=== PATIENT | male | born 1950 | race Caucasian/White ===

== ENCOUNTER 2017-04-08 18:00 | Emergency (ER) | payer OTHER, MEDICARE ==
[2017-04-08 18:00] VITALS: BP 131/76; PULSE 96; RESP 22; TEMP 97.9; O2SAT 91
--- NOTE | 2017-04-08 20:37 | PD ---
HPI Chief Complaint: Psychiatric Symptoms Time Seen by Provider: 20:37 Travel History International Travel<30 days: No Contact w/Intl Traveler<30days: No Traveled to known affect area: No History of Present Illness HPI 66-year-old male with history of COPD, presents to the emergency department under a Robles act for psychiatric evaluation. Patient states that he is a [facility] the [facility] and [facility] he feels as though his care has not been adequate. He thinks that his breathing has gotten worse and he has not been getting injections into his eyes which are for helping his site not deteriorate. He is also upset because his vitamin B injections have not been filled. He states that he was explaining this to his physician and telling him that if he is "going to live he wants to live life, but if he is going to and not be able to live his life, he would rather just get it over with now." Patient states he has no plan of suicide. He does a set he wants to live for his grandchildren but has told his grandchildren to not come to his home for the last few months because he does not have the energy and this has caused him to be more upset. Agent denies any illicit drug use. He is oxygen dependent at home and chronically short of breath. He has no other symptoms to report at this time. [facility] Past Medical History Cancer: Yes (COLON) COPD: Yes Diminished Hearing: No Medical other: Yes (R SIDE ILEOSTOMY ) Past Surgical History Appendectomy: Yes Cholecystectomy: Yes Other Surgery: Yes (PARTIAL LIVER REMOVAL, REMOVED ALL BUT 3-4 FEET OF INTESTINE ) Social History Alcohol Use: No Tobacco Use: No Substance Use: No Allergies-Medications (Allergen,Severity, Reaction): Coded Allergies: Contrast Media (Verified Allergy, Intermediate, 04/08/17) Review of Systems Except as stated in HPI: all other systems reviewed are Neg Physical Exam Narrative GENERAL: Well-nourished male patient, in no acute distress. SKIN: Focused skin assessment warm/dry. HEAD: Atraumatic. Normocephalic. EYES: Pupils equal and round. No scleral icterus. No injection or drainage. ENT: No nasal bleeding or discharge. Mucous membranes pink and moist. NECK: Trachea midline. No JVD. CARDIOVASCULAR: Regular rate and rhythm. No murmur appreciated. RESPIRATORY: No accessory muscle use. Menest to auscultation. Breath sounds equal bilaterally. GASTROINTESTINAL: Abdomen soft, non-tender, nondistended. Hepatic and splenic margins not palpable. MUSCULOSKELETAL: No obvious deformities. No clubbing. No cyanosis. No edema. NEUROLOGICAL: Awake and alert. No obvious cranial nerve deficits. Motor grossly within normal limits. Normal speech. PSYCHIATRIC: Appropriate mood and affect; insight and judgment normal. Data Data Last Documented VS Vital Signs Date Time Temp Pulse Resp B/P Pulse Ox O2 Delivery O2 Flow Rate FiO2 04/09/17 02:38 97 90 Nasal Cannula 3 04/09/17 00:40 18 130/70 04/08/17 18:00 97.9 Orders Complete Blood Count With Diff (04/08/17 20:37) Basic Metabolic Panel (Bmp) (04/08/17 20:37) Urinalysis - C+S If Indicated (04/08/17 20:37) Psych Screen (04/08/17 20:37) Drug Screen, Random Urine (04/08/17 20:37) Alcohol (Ethanol) (04/08/17 20:37) Albuterol-Ipratropium Neb (Duoneb Neb) (04/08/17 20:45) Oxygen Administration (04/08/17 20:41) Chest, Single Ap (04/08/17 ) Diet Regular Basic (04/09/17 Breakfast) Labs Laboratory Tests Test 04/08/17 20:50 White Blood Count 15.2 TH/MM3 Red Blood Count 4.96 MIL/MM3 Hemoglobin 14.6 GM/DL Hematocrit 42.6 % Mean Corpuscular Volume 86.0 FL Mean Corpuscular Hemoglobin 29.5 PG Mean Corpuscular Hemoglobin 34.3 % Concent Red Cell Distribution Width 14.7 % Platelet Count 298 TH/MM3 Mean Platelet Volume 8.4 FL Neutrophils (%) (Auto) 66.7 % Lymphocytes (%) (Auto) 21.1 % Monocytes (%) (Auto) 8.6 % Eosinophils (%) (Auto) 2.8 % Basophils (%) (Auto) 0.8 % Neutrophils # (Auto) 10.1 TH/MM3 Lymphocytes # (Auto) 3.2 TH/MM3 Monocytes # (Auto) 1.3 TH/MM3 Eosinophils # (Auto) 0.4 TH/MM3 Basophils # (Auto) 0.1 TH/MM3 CBC Comment DIFF FINAL Differential Comment Sodium Level 136 MEQ/L Potassium Level 4.3 MEQ/L Chloride Level 101 MEQ/L Carbon Dioxide Level 29.6 MEQ/L Anion Gap 5 MEQ/L Blood Urea Nitrogen 16 MG/DL Creatinine 1.22 MG/DL Estimat Glomerular Filtration 59 ML/MIN Rate Random Glucose 104 MG/DL Calcium Level 8.5 MG/DL Ethyl Alcohol Level 6 MG/DL MDM Medical Decision Making Medical Screen Exam Complete: Yes Emergency Medical Condition: Yes Medical Record Reviewed: Yes Differential Diagnosis Adjustment reaction disorder versus mood disorder versus personality disorder Narrative Course 66-year-old male presents to emergency department and a Robles act for psychiatric evaluation. Patient appears without distress. He is placed on nasal cannula oxygen here as he is at home. He is given a breathing treatment. Lab work is ordered and completed without acute concern. Chest x-rays without acute concern. Patient is medically cleared to undergo psychiatric screening for further evaluation and disposition. Mental health screening discussed with the patient. Psychiatric screen ordered. Diagnosis Primary Impression: Adjustment reaction Qualified Code: F43.21 - Adjustment disorder with depressed mood Additional Impression: COPD (chronic obstructive pulmonary disease) Qualified Code: J43.9 - Pulmonary emphysema, unspecified emphysema type Condition: Stable Lucy Tanner Apr 08, 2017 20:37
[2017-04-08 21:37] LABS: AUTOMATED NEUTROPHIL # 10.1 TH/MM3 (1.8-7.7); BASOPHIL # 0.1 TH/MM3 (0-0.2); BASOPHIL % 0.8 % (0.0-2.0); EOSINOPHIL # 0.4 TH/MM3 (0-0.4); EOSINOPHIL % 2.8 % (0.0-4.0); HEMATOCRIT 42.6 % (39.0-51.0); HEMO FLAGS DIFF FINAL; LYMPH % 21.1 % (9.0-44.0); LYMPHOCYTE # 3.2 TH/MM3 (1.0-4.8); MEAN CORPUSCULAR HEMOGLOBIN 29.5 PG (27.0-34.0); MEAN CORPUSCULAR HGB CONC 34.3 % (32.0-36.0); MONO % 8.6 % (0.0-8.0); NEUT % 66.7 % (16.0-70.0); PLATELET COUNT 298 TH/MM3 (150-450); RED BLOOD COUNT 4.96 MIL/MM3 (4.50-5.90); RED CELL DISTRIBUTION WIDTH 14.7 % (11.6-17.2); WHITE BLOOD COUNT 15.2 TH/MM3 (4.0-11.0)
[2017-04-08] MEDS: RESP: ALBUTEROL 2.5 MG/IPRATROPIUM 0.5 MG NEB (PRN) NEB (21:48)
[2017-04-08 21:49] LABS: BICARBONATE 29.6 MEQ/L (21.0-32.0); POTASSIUM 4.3 MEQ/L (3.5-5.1)
[2017-04-08 22:08] VITALS: BP 137/81; PULSE 89; RESP 26; O2SAT 97
--- NOTE | 2017-04-08 22:37 | RADRPT ---
EXAM DATE/TIME: 04/08/2017 22:03 [place] COMPARISON: No previous studies available for comparison. INDICATIONS : Coughing and wheezing. MEDICAL HISTORY : Chronic obstructive pulmonary disease. SURGICAL HISTORY : None. ENCOUNTER: Initial ACUITY: 1 day PAIN SCORE: 0/10 LOCATION: Bilateral chest FINDINGS: A single view of the chest demonstrates the lungs to be symmetrically aerated without evidence of mas s, infiltrate or effusion. The cardiomediastinal contours are unremarkable. Osseous structures are intact. CONCLUSION: No acute disease. Papo Gore MD on April 08, 2017 at 22:35 Board Certified Radiologist. This report was verified electronically.
[2017-04-09 00:39] VITALS: BP 130/68; PULSE 88; RESP 18; O2SAT 99
[2017-04-09 00:40] VITALS: BP 130/70; PULSE 80; RESP 18; O2SAT 99
[2017-04-09 02:38] VITALS: PULSE 97; O2SAT 90
[2017-04-09] MEDS: RESP: ALBUTEROL 2.5 MG/IPRATROPIUM 0.5 MG NEB (PRN) NEB (02:38)
[2017-04-09 07:40] VITALS: BP 109/78; PULSE 76; RESP 20; TEMP 97.8; O2SAT 99
--- NOTE | 2017-04-09 09:37 | MB ---
cc: VENU REID MD DATE OF CONSULTATION: 04/09/2017 REQUESTING CONSULTATION: Emergency department. REASON FOR CONSULTATION: Robles Act. HISTORY OF PRESENT ILLNESS Mr. Dickey is a 66-year-old male with no known past psychiatric history who presents under Robles ACT from Bettina Oneill clinical psychologist, who is alleging that the patient made comments to the [facility] medical staff on the and the regarding a plan to come with a gun and shoot staff or shoot himself if he did not get a B12 shot. Reviewing the electronic medical record, I see no prior psychiatric contact within our system and this is apparently the patient's first visit to [place]. The patient seen and examined. Chart reviewed. Sitter at the bedside. The patient has been calm and cooperative overnight. No evidence of any suicidality or homicidality. On my examination today, the patient is calm and cooperative. He adamantly denies the allegations in the Robles ACT and denies suicidal or homicidal ideation, intent or plan on direct questioning. He contracts for safety. He explains that [facility] as he feels that he is deficient. He relates that he has history of extensive bowel resection related to his history of inflammatory bowel disease and so does not absorb B12 well. He has been feeling particularly weak lately and is convinced that he is in need of B12. He says that he has written B12 shots regularly in the past. He says that the physician at the [facility] blew him off. He returned on the and reiterated his request. He says that his statements were taken out of context. He says when he really said was "if I am dying, I might as well go home and end it, but I want to live." He denies suicidal or homicidal ideation as I said. I can elicit no depressive symptoms. I can elicit no hypomanic or manic symptoms. He denies any audiovisual hallucinations and I can elicit no delusional beliefs. The remainder of the psychiatric ROS is negative. The patient is requesting discharge from the emergency room this morning. With the patient's permission, I have obtained collateral from his granddaughter with whom he lives, Fatemeh Willis at [phone]. She agrees that the [facility] likely took the patient's statements out of context. She has absolutely no concerns about the patient being a risk of harm to himself or others. She has never known the patient to be suicidal or violent. PAST PSYCHIATRIC HISTORY The patient denies a history of psychiatric diagnosis. He denies a history of inpatient or outpatient psychiatric treatment. He denies a history of suicide attempts. He denies a history of violent behavior. FAMILY HISTORY The patient denies a family history of serious mental illness. He does note that his brother struggled with alcohol use. CHEMICAL DEPENDENCY HISTORY: The patient denies any abuse of drugs or alcohol himself. SOCIAL HISTORY The patient reports that he lives with his granddaughter. He was in 2001 having lost his to lung cancer. He has one natural born child and adopted four others. He served in the [employer] during the [employer] and is 100% service-connected with a honorable discharge. No reported PTSD symptoms. Denies any legal history. Denies any access to guns or firearms. PAST MEDICAL HISTORY Includes a history of colon cancer and Crohn disease. REVIEW OF SYSTEMS No reported headache, vision or hearing changes, chest pain, shortness of breath, bowel or bladder issues. No other physical complaints. PHYSICAL EXAMINATION VITAL SIGNS: Temperature 97.8, pulse 76, respirations 20, blood pressure 109/78, pulse oximetry 98% on room air 3 liters by nasal cannula. Physical examination completed by the ED provider. On my examination today, the patient appears to be in no acute physical distress. He is somewhat dyspneic but is on supplemental O2. No motor abnormalities noted. LABORATORY Reviewed: CBC is significant for mild leukocytosis at 15.2. BMP reveals GFR 59. Alcohol level very slightly elevated at six. MENTAL STATUS EXAM The patient is in hospital gown. He is well-groomed. He is awake, alert and oriented x3. No evidence of delirium. No motor abnormalities noted. Speech is within normal limits for rate, tone and volume. Language and fund of knowledge average. Focus concentration intact. Memory ingrowth is grossly intact on clinical exam. Mood is fair all things considered. Affect is euthymic, full and reactive. Thought process linear. No loosening of associations. No delusional material elicited. Denies audiovisual hallucinations. Denies suicidal or homicidal ideation, intent or plan. Insight and judgment are fair. ASSESSMENT/PLAN Adjustment disorder, unspecified, F 43.20 This is a 66-year-old male was with no real past psychiatric history who presents under Robles ACT. The patient was apparently simply [facility] and perhaps got a little heated when they refused. In any event he denies any suicidal or homicidal ideation, intent or plan on direct questioning. Contracts for safety. I can detect no unstable mental illness as defined under the Robles ACT. His granddaughter with whom he lives provides reassuring collateral. The patient says he plans to follow up with a different doctor because he does not like the care that he is getting from the [facility]. Synthesizing all this information and weighing the relevant factors, I pipe crew foreman the patient does not meet Robles ACT criteria at this time. I have lifted the Robles ACT. I have counseled the patient regarding warning signs for need to return to psychiatric emergency room as part of a general safety plan. The patient is psychiatrically clear for discharge from the emergency department. Thank you very much for this consultation. Venu Ambriz /8:54 AM /9:23 AM VINICIUS
[2017-04-09 10:18] VITALS: BP 120/81; TEMP 97.8
== END 2017-04-09 10:19 | disposition home or self-care (01) ==
LOC: NEPD 18:00
DX: F43.21 Adjustment disorder with depressed mood (principal); J43.9 Emphysema, unspecified; F43.20 Adjustment disorder, unspecified; Z99.81 Dependence on supplemental oxygen; Z87.09 Personal history of other diseases of the respiratory system; Z85.038 Personal history of other malignant neoplasm of large intestine
CPT/HCPCS: 71010; 80048; 80307; 85025; 94664; 99284